=== PATIENT | female | born 1930 | race Caucasian/White ===

== ENCOUNTER 2017-10-07 14:59 | Outpatient (CLI) | payer OTHER | END 2017-10-07 15:04 | disposition home or self-care (01) | LOC: RAD 14:59 | DX: J44.9 Chronic obstructive pulmonary disease, unspecified (principal) ==

== ENCOUNTER 2019-01-11 15:25 | Outpatient (CLI) | payer OTHER | END 2019-01-11 18:00 | disposition home or self-care (01) | LOC: LAB 15:25 → RAD 15:25 | DX: M20.42 Other hammer toe(s) (acquired), left foot (principal) ==